=== PATIENT | female | born 1965 | race Caucasian/White ===

== ENCOUNTER 2024-04-17 05:21 | Day surgery (SDC) | payer OTHER, MEDICARE ==
[~2024-04-17] VITALS: Ht 147.3 cm; Wt 47.7 kg
[2024-04-17] MEDS ORDERED: ROCURONIUM BROMIDE 10 MG/ML 5 ML VIAL ONE (06:47)
[2024-04-17] MEDS ORDERED: DEXAMETHASONE SOD PHOS 4 MG/ML VIAL ONE (06:47)
[2024-04-17] MEDS ORDERED: SUGAMMADEX SODIUM 200 MG/2 ML VIAL IVP ONE (06:47)
[2024-04-17] MEDS ORDERED: PROPOFOL 1% 20 ML VIAL IVP ONE (06:47)
[2024-04-17] MEDS ORDERED: LIDOCAINE/PF 2% 5 ML VIAL ONE (06:47)
[2024-04-17] MEDS ORDERED: ONDANSETRON HCL 4 MG/2 ML VIAL ONE (06:47)
[2024-04-17] MEDS ORDERED: AMPICILLIN SODIUM 2 GM/NS 100 ML IV ONE (07:13)
[2024-04-17 07:29] LABS: BASOPHILS % (AUTO) 1.1 % (0.0-2.0); EOSINOPHILS % (AUTO) 0.7 % (1.0-6.0); HEMATOCRIT 37.4 % (36-46); HEMOGLOBIN 12.7 g/dL (12.0-16.0); LYMPHOCYTES # (AUTO) 1.7 K/uL (1.0-4.8); LYMPHOCYTES % (AUTO) 32.8 % (22.0-44.0); MEAN CORPUSCULAR HGB CONC 33.9 G/dL (31.0-37.0); MEAN CORPUSCULAR VOLUME 91 fL (80-100); MONOCYTES # (AUTO) 0.3 K/uL (0.1-1.0); MONOCYTES % (AUTO) 5.4 % (2.0-9.0); NEUTROPHILS # (AUTO) 3.2 K/uL (1.8-7.7); PLATELET COUNT (AUTO) 231 K/uL (150-450); RED BLOOD CELL COUNT(AUTO) 4.09 MIL/uL (4.00-5.20); RED CELL DISTRIBUTION WIDTH 13.5 % (11.5-14.5); WHITE BLOOD COUNT (AUTO) 5.3 K/uL (4.5-11.0)
[2024-04-17 07:43] LABS: PROTHROMBIN TIME 10.9 SEC (9.4-11.6)
[2024-04-17 07:56] LABS: ANION GAP 5 mmol/L (8-16); CALCIUM, TOTAL 8.8 mg/dL (8.8-10.5); CARBON DIOXIDE 31 mmol/L (22-29); CHLORIDE 105 mmol/L (98-107); CREATININE 0.69 mg/dL (0.60-1.30); GLOMERULAR FILTR. RATE CALC > 60 mL/min (>60); GLUCOSE,RANDOM 94 mg/dL (70-110); POTASSIUM 4.6 mmol/L (3.5-5.1); SODIUM SERUM 141 mmol/L (136-145); UREA NITROGEN, BLOOD 17 mg/dL (7-18)
[2024-04-17 07:59] LABS: ALANINE AMINOTRANSFERASE 37 U/L (12-78); ALBUMIN 3.1 g/dL (3.4-5.0); ALKALINE PHOSPHATASE 107 U/L (46-116); ASPARTATE AMINOTRANSFERASE 20 U/L (15-37); BILIRUBIN,TOTAL 0.2 mg/dL (0.1-1.0); TOTAL PROTEIN, SERUM 6.7 g/dL (6.4-8.2)
[2024-04-17] MEDS ORDERED: RINGERS SOLUTION,LACTATED 1,000 ML IV ONE (08:19)
[2024-04-17] MEDS: RINGERS SOLUTION,LACTATED 1,000 ML IV ONE (08:50)
[2024-04-17] MEDS ORDERED: BENZ-247 PO (09:04)
[2024-04-17] MEDS ORDERED: LEVO330T7 PO (09:04)
[2024-04-17] MEDS ORDERED: NALO25TA4 PO (09:04)
[2024-04-17] MEDS ORDERED: LEVO25TA9 PO (09:04)
[2024-04-17] MEDS ORDERED: DIVA-111 PO (09:04)
[2024-04-17] MEDS ORDERED: OLAN5TAB52 PO (09:04)
[2024-04-17] MEDS ORDERED: LACO50TA16 PO (09:04)
[2024-04-17] MEDS ORDERED: ALPR-707 PO (09:04)
[2024-04-17] MEDS ORDERED: OXYB5TAB20 PO (09:04)
== END 2024-04-17 10:50 | disposition home or self-care (01) ==
LOC: SURGERY 05:21
PROVIDERS: ATTEND Dentist General Practice
DX: K05.30 Chronic periodontitis, unspecified (principal); K02.9 Dental caries, unspecified; K59.00 Constipation, unspecified; F84.0 Autistic disorder; G47.00 Insomnia, unspecified; E11.9 Type 2 diabetes mellitus without complications; R62.50 Unspecified lack of expected normal physiological development in childhood; Z79.01 Long term (current) use of anticoagulants; Z79.899 Other long term (current) drug therapy; E03.9 Hypothyroidism, unspecified; F63.81 Intermittent explosive disorder
CPT/HCPCS: 41899; 71045; 80053; 85025; 85610; 85730; 36415; 93005; J0290; J2704; J1100; J3490 ×3; J2405; J7120; Z7610